=== PATIENT | male | born 1965 | race African-American/Black ===

== ENCOUNTER 2019-01-29 01:29 | Emergency (ER) | payer MEDICAID ==
[~2019-01-29] VITALS: Ht 185.4 cm; Wt 127.0 kg
[2019-01-29] MEDS ORDERED: IBUPROFEN 800MG TABLET PO ONE (03:30)
[2019-01-29 05:12] VITALS: BP 154/91
== END 2019-01-29 05:23 | disposition home or self-care (01) ==
LOC: ER 01:29
DX: M25.461 Effusion, right knee (principal); M71.21 Synovial cyst of popliteal space [Baker], right knee; E11.9 Type 2 diabetes mellitus without complications; I10 Essential (primary) hypertension; F17.210 Nicotine dependence, cigarettes, uncomplicated; Z98.890 Other specified postprocedural states
CPT/HCPCS: 73562; 93971; 99284